=== PATIENT | female | born 1995 | race Caucasian/White ===

== ENCOUNTER → 2020-04-05 | Outpatient (CLI) | payer OTHER ==
--- NOTE | 2020-04-05 16:39 | Diagnostic Imaging Report ---
INDICATION: Routine anatomic survey. TECHNIQUE: Multiple real-time grayscale images were obtained over the gravid uterus. COMPARISON: None. FINDINGS: Number: Single live Placenta: Anterior Amniotic Fluid: ANISA is 12 cm. Single largest vertical pocket is 3.3 cm. Heart Rate: 153 bpm Biometrical measurements are as follows: Biparietal 4.64 cm, age 20 weeks 1 days. Head circumference 17.99 cm, age 20 weeks 3 days. Abdominal circumference 15.00 cm, age 20 weeks 2 days. Femur length 3.19 cm, age 20 weeks 0 days. Sonographic estimate age: 20 weeks 2 days. Sonographic estimated date of delivery: 08/21/2020. Estimated Weight: 334 gm (+/- 49 gm). LMP percentile: 44%. CLINICAL DATES: Gestational age 20 weeks and 1 day, GABRIELA 08/22/2020 FINDINGS: The anatomic survey is grossly unremarkable. The stomach, four-chamber heart, kidneys, bladder, three-vessel cord and the cord insertion are well seen. The spine is suboptimally demonstrated, but demonstrates no gross abnormalities. Intracranial structures are grossly unremarkable as well. IMPRESSION: Single live intrauterine at approximately 20 weeks and 2 days, with an GABRIELA of 08/21/2020. These are concordant with clinical dates. No gross abnormalities are seen at this time. Dictated by: Dictated on workstation # [id number]
== END ==
LOC: RAD 14:43
PROVIDERS: ATTEND Obstetrics & Gynecology
DX: Z34.00 Encounter for supervision of normal first pregnancy, unspecified trimester (principal); Z3A.00 Weeks of gestation of pregnancy not specified
CPT/HCPCS: 76805

== ENCOUNTER 2020-04-19 14:59 | Outpatient (RCR) | payer OTHER | END 2020-05-16 | disposition home or self-care (01) | PROVIDERS: ATTEND Obstetrics & Gynecology | DX: O99.891 Other specified diseases and conditions complicating pregnancy (principal); M62.81 Muscle weakness (generalized); M21.372 Foot drop, left foot; Z3A.13 13 weeks gestation of pregnancy ==

== ENCOUNTER 2020-05-19 10:04 | Outpatient (RCR) | payer OTHER ==
[2020-08-25] MEDS ORDERED: FERR325T18 PO (08:22)
[2020-08-25] MEDS ORDERED: LIDO10VI INJ (08:22)
[2020-08-25] MEDS ORDERED: DCS100C PO (08:22)
[2020-08-25] MEDS ORDERED: BENZ78AE5 TP (08:22)
[2020-08-25] MEDS ORDERED: ACHD5005 PO (08:22)
[2020-08-25] MEDS ORDERED: IBUP-844 PO (08:22)
== END 2020-08-17 | disposition home or self-care (01) ==
PROVIDERS: ATTEND Obstetrics & Gynecology
DX: M21.372 Foot drop, left foot (principal); M62.81 Muscle weakness (generalized)

== ENCOUNTER 2020-08-23 07:35 | Inpatient (IN) | payer OTHER, MEDICAID ==
[2020-08-23] VITALS (75 sets, daily range): BP systolic 91–139; BP diastolic 49–97
[~2020-08-23] VITALS: Ht 165.1 cm; Wt 107.3 kg
[2020-08-23] MEDS: D5 LR IV SOLUTION 1,000 ML IV SCH ×3 (08:56→21:40)
[2020-08-23] MEDS ORDERED: OXYTOCIN PRE-MIX DRIP 500 ML IV ONE (09:05)
[2020-08-23 09:16] LABS: BASOPHILS % (AUTO) 0 % (0-10); EOSINOPHILS # (AUTO) 0.1 10^3/uL (0.0-0.3); EOSINOPHILS % (AUTO) 1 % (0-10); HEMATOCRIT 41 % (35-52); HEMOGLOBIN 14.1 g/dL (11.5-16.0); LYMPHOCYTES % (AUTO) 19 % (12-44); MEAN CORPUSCULAR HEMOGLOBIN 28 pg (25-34); MEAN CORPUSCULAR HGB CONC 35 g/dL (32-36); MEAN CORPUSCULAR VOLUME 81 fL (80-99); MONOCYTES # (AUTO) 0.7 10^3/uL (0.0-1.0); MONOCYTES % (AUTO) 4 % (0-12); NEUTROPHILS # (AUTO) 11.7 10^3/uL (1.8-7.8); NEUTROPHILS % (AUTO) 73 % (42-75); PLATELET COUNT 222 10^3/uL (130-400)
[2020-08-23] MEDS: OXYTOCIN PRE-MIX DRIP 500 ML IV SCH (09:16)
[2020-08-23 09:37] LABS: BAND NEUTROPHILS 4 %; LYMPHOCYTES % (MANUAL) 17 %; MONOCYTES % (MANUAL) 5 %; NEUTROPHILS % (MANUAL) 74 %; RBC MORPH NORMAL
[2020-08-23] MEDS ORDERED: fentaNYL 2 mcg/ml BUPIVA 0.125 100 ML ONE (16:52)
[2020-08-23] MEDS ORDERED: LACTATED RINGERS 1,000 ML IV SCH (17:00)
[2020-08-23] MEDS ORDERED: BUPIVACAINE 0.25% 30 ML (SENSORCAINE) VIAL ONE (17:29)
[2020-08-23] MEDS ORDERED: fentaNYL INJ 100 MCG/2 ML AMP ONE (17:29)
[2020-08-23] MEDS ORDERED: LACTATED RINGERS 1,000 ML IV ONE ×2 (17:45)
[2020-08-23] MEDS ORDERED: NALOXONE 0.4 MG/ML 1 ML (NARCAN) VIAL IV PRN (17:45)
[2020-08-23] MEDS ORDERED: ONDANSETRON 4 MG/2 ML (SDV) Z0FRAN IV PRN (17:45)
[2020-08-23] MEDS ORDERED: fentaNYL INJ 100 MCG/2 ML AMP INJ ONE (17:45)
[2020-08-23] MEDS: EPIDURAL (fentaNYL 2 MCG/ML BUPIVA 0.125%)100 ML BAG EPI PRN (18:00)
[2020-08-23] MEDS ORDERED: ONDA4TAB11 PO (19:04)
[2020-08-23] MEDS ORDERED: PREN1TAB79 PO (19:04)
[2020-08-23] MEDS ORDERED: DOCU-238 PO (19:04)
[2020-08-23] MEDS: CATHETER FLUSH 10 ML SYR IV SCH ×2 (19:30→23:44)
[2020-08-24] VITALS (35 sets, daily range): BP systolic 93–139; BP diastolic 51–87
[2020-08-24] MEDS ORDERED: LIDOCAINE/EPI 2% 1:200,00 (XYLOCAINE) 10 ML VIAL INJ PRN
[2020-08-24] MEDS ORDERED: LIDOCAINE/EPI 2% 1:200,00 (XYLOCAINE) 20 ML VIAL ONE ×2 (00:06→07:21)
[2020-08-24] MEDS: EPIDURAL (fentaNYL 2 MCG/ML BUPIVA 0.125%)100 ML BAG EPI PRN (02:03)
[2020-08-24] MEDS ORDERED: MEASLES,MUMPS,RUBELLA 1 EA INJ SQ ONE (04:15)
[2020-08-24] MEDS ORDERED: TETANUS,DIPTH,PERTUSS P/F (BOOSTRIX) 0.5 ML VIAL IM ONE (04:15)
[2020-08-24] MEDS ORDERED: HYDROcodone/APAP 5 MG/325 MG (LORTAB) TAB PO PRN (04:15)
[2020-08-24] MEDS ORDERED: OXYTOCIN PRE-MIX DRIP 500 ML IV SCH (04:15)
[2020-08-24] MEDS ORDERED: DIBUCAINE 1% OINTMENT 30 GM TUBE TOP PRN (04:15)
--- NOTE | 2020-08-24 04:20 | History & Physical-OB ---
OB - Chief Complaint & HPI Date/Time Date of Admission: Date of Admission: Aug 23, 2020 at 08:09 Date seen by a Provider: Aug 23, 2020 Time Seen by a Provider: 08:15 Chief Complaint/History Hx : 1 Hx Para: 0 Expected Date of Delivery: Aug 22, 2020 Gestational Age in Weeks: 40 Gestational Age in Days: 1 Admission Nurse Assessment Rev: Yes History of Labs GBS pos Allergies and Home Medications Allergies Coded Allergies: No Known Drug Allergies (Unverified , 08/23/20) Home Medications Docusate Sodium 100 Mg Capsule, 100 MG PO DAILY PRN, (Reported) Last Action: New Order Ondansetron 4 Mg Tab.rapdis, 4 MG PO Q6H, (Reported) Last Action: New Order Vit W-Ca,Fe,FA(<1 mg) 1 Each Tablet, 1 EACH PO DAILY, (Reported) Last Action: New Order Patient Home Medication List Home Medication List Reviewed: Yes OB - History Hx of Present Care: Yes Ultrasounds: Normal mid trimester US Obstetrical Complications: None Medical Complications: None Patient Past Medical History n/a Immunizations Hepatitis A: Yes Hepatitis B: Yes Date of Influenza Vaccine: Mar 08, 2020 OB - Admission Exam Physical Exam Vitals: Vital Signs 08/23/20 08/24/20 08/24/20 17:30 01:45 02:15 Temp 37.0 Pulse 117 Resp 18 B/P (MAP) 102/51 (68) Pulse Ox 99 O2 Delivery Room Air O2 Flow Rate 15.00 HEENT: NCAT Heart: Rhythm Normal Lungs: Clear Abdomen: Gravid Extremities: Normal Reflexes: Normal Cervical Dilatation: 3cm Effacement: 75% Station: -1 Membranes: Intact Heart Rate: 150's Accelerations: Accelerations Present Decelerations: Variable Decelerations Short Term Variability: Present Finance Business Manager Variability: Average (6-25) Contractions on Admission: < 5 Minutes Apart Intensity: Firm Labs Laboratory Tests Test 08/23/20 08:45 Range/Units White Blood Count 16.0 H 4.3-11.0 10^3/uL Red Blood Count 5.01 3.80-5.11 10^6/uL Hemoglobin 14.1 11.5-16.0 g/dL Hematocrit 41 35-52 % Mean Corpuscular Volume 81 80-99 fL Mean Corpuscular Hemoglobin 28 25-34 pg Mean Corpuscular Hemoglobin Concent 35 32-36 g/dL Red Cell Distribution Width 13.2 10.0-14.5 % Platelet Count 222 130-400 10^3/uL Mean Platelet Volume 11.0 9.0-12.2 fL Immature Granulocyte % (Auto) 3 % Neutrophils (%) (Auto) 73 42-75 % Lymphocytes (%) (Auto) 19 12-44 % Monocytes (%) (Auto) 4 0-12 % Eosinophils (%) (Auto) 1 0-10 % Basophils (%) (Auto) 0 0-10 % Neutrophils # (Auto) 11.7 H 1.8-7.8 10^3/uL Lymphocytes # (Auto) 3.0 1.0-4.0 10^3/uL Monocytes # (Auto) 0.7 0.0-1.0 10^3/uL Eosinophils # (Auto) 0.1 0.0-0.3 10^3/uL Basophils # (Auto) 0.0 0.0-0.1 10^3/uL Immature Granulocyte # (Auto) 0.4 H 0.0-0.1 10^3/uL Neutrophils % (Manual) 74 % Lymphocytes % (Manual) 17 % Monocytes % (Manual) 5 % Band Neutrophils 4 % Blood Morphology Comment NORMAL OB - Assessment/Plan/Diagnosis Assessment Assessment: active labor, rupture of membranes Admission Dx 25 yo @ 40.1 Active labor SROM GBS neg Admission Status: Inpatient Order (span 2 midnights) Reason for Inpatient Admission: Active labor at term [facility] Plan Plan: Expectant Management JULIANNE MELCHOR DO Aug 24, 2020 04:20
[2020-08-24] MEDS: OXYTOCIN PRE-MIX DRIP 500 ML IV SCH (04:21)
--- NOTE | 2020-08-24 04:26 | OB Labor & Delivery Record ---
L&D History Date of Service Date of Service: Aug 24, 2020 History Expected Date of Delivery: Aug 22, 2020 Gestational Age in Weeks: 40 Hx : 1 Hx Para: 0 Complications Events: Routine care Operative Indications (Cesarea: N/A-Vaginal Delivery Intrapartal Events: None, Ineffective Pushing L&D Stage1 Stage One Onset of Labor - Date: Aug 24, 2020 Monitors and Tracing Monitor Mode: External Heart Rate: 150 Monitor Accelerations: Uniform Monitor Decelerations: Variable Station: -1 Placement Specialist Variability: Average (6-10) Presentation: Vertex Vital Signs VS - Last 72 Hours, by Label 08/23/20 08/23/20 08/23/20 08/23/20 07:50 08:20 08:30 08:50 Temp 36.7 36.7 Pulse 111 108 111 117 Resp 20 18 20 18 B/P (MAP) 121/76 (91) 117/71 (86) 122/79 (93) Pulse Ox 97 20 97 O2 Delivery Room Air Room Air Room Air Room Air 08/23/20 08/23/20 08/23/20 08/23/20 09:26 09:45 10:00 10:15 Temp 36.7 Pulse 96 97 92 100 Resp 18 18 18 18 B/P (MAP) 113/65 (81) 114/59 (77) 106/58 (74) 116/56 (76) O2 Delivery Room Air Room Air Room Air Room Air 08/23/20 08/23/20 08/23/20 08/23/20 10:30 10:45 11:00 11:15 Temp 36.4 Pulse 96 89 67 90 Resp 18 18 18 18 B/P (MAP) 102/57 (72) 112/65 (81) 110/61 (77) 115/70 (85) O2 Delivery Room Air Room Air Room Air Room Air 08/23/20 08/23/20 08/23/20 08/23/20 11:30 11:45 12:00 12:15 Temp 36.4 Pulse 73 73 70 72 Resp 18 18 18 18 B/P (MAP) 110/59 (76) 110/58 (75) 113/59 (77) 134/80 (98) O2 Delivery Room Air Room Air Room Air Room Air 4/14/08/23/20 08/23/20 08/23/20 12:30 12:45 13:00 13:15 Pulse 67 68 65 65 Resp 18 18 18 18 B/P (MAP) 113/61 (78) 119/59 (79) 115/57 (76) 125/58 (80) O2 Delivery Room Air Room Air Room Air Room Air 08/23/20 08/23/20 08/23/20 08/23/20 13:30 13:45 14:00 14:15 Temp 36.8 Pulse 115 88 92 87 Resp 18 18 18 18 B/P (MAP) 124/58 (80) 104/59 (74) 113/60 (77) 117/65 (82) O2 Delivery Room Air Room Air Room Air Room Air 08/23/20 08/23/20 08/23/20 08/23/20 14:30 14:45 15:00 15:15 Pulse 76 84 84 76 Resp 18 18 18 18 B/P (MAP) 91/50 (64) 93/55 (68) 93/55 (68) 96/55 (69) O2 Delivery Room Air Room Air Room Air Room Air 08/23/20 08/23/20 08/23/20 08/23/20 15:30 15:45 16:00 16:15 Temp 36.7 Pulse 80 74 76 71 Resp 18 18 18 18 B/P (MAP) 101/49 (66) 100/62 (75) 111/59 (76) 114/64 (81) O2 Delivery Room Air Room Air Room Air Room Air 08/23/20 08/23/20 08/23/20 08/23/20 16:30 16:45 17:00 17:15 Temp 36.7 Pulse 71 65 68 64 Resp 18 18 18 18 B/P (MAP) 114/64 (81) 122/58 (79) 122/58 (79) 120/66 (84) Pulse Ox 100 100 100 O2 Delivery Room Air Non Rebreather Non Rebreather Non Rebreather O2 Flow Rate 15.00 15.00 15.00 08/23/20 08/23/20 08/23/20 08/23/20 17:30 17:45 17:50 17:53 Pulse 66 107 81 80 Resp 18 18 18 18 B/P (MAP) 114/70 (85) 139/97 (111) 127/78 (94) 124/76 (92) Pulse Ox 100 98 100 100 O2 Delivery Non Rebreather Room Air Room Air Room Air O2 Flow Rate 15.00 08/23/20 08/23/20 08/23/20 08/23/20 17:56 18:00 18:03 18:05 Pulse 100 106 74 80 Resp 18 18 18 18 B/P (MAP) 110/65 (80) 93/52 (66) 104/56 (72) 109/67 (81) Pulse Ox 99 97 99 98 O2 Delivery Room Air Room Air Room Air Room Air 08/23/20 08/23/20 08/23/20 08/23/20 18:07 18:10 18:13 18:15 Pulse 92 96 88 88 Resp 18 18 18 18 B/P (MAP) 103/59 (74) 101/55 (70) 97/55 (69) 97/55 (69) Pulse Ox 98 98 100 100 O2 Delivery Room Air Room Air Room Air Room Air 08/23/20 08/23/20 08/23/20 08/23/20 18:17 18:23 18:26 18:30 Temp 36.2 36.2 Pulse 96 78 77 79 Resp 18 18 18 18 B/P (MAP) 103/57 (72) 94/53 (67) 99/57 (71) 100/58 (72) Pulse Ox 100 97 100 96 O2 Delivery Room Air Room Air Room Air Room Air 08/23/20 08/23/20 08/23/20 08/23/20 18:37 18:40 18:45 19:00 Temp 36.8 Pulse 103 80 93 96 Resp 18 18 18 18 B/P (MAP) 116/58 (77) 139/62 (87) 95/54 (68) 105/65 (78) Pulse Ox 100 99 99 98 O2 Delivery Room Air Room Air Room Air Room Air 08/23/20 08/23/20 08/23/20 08/23/20 19:15 19:30 19:45 20:00 Temp 36.9 Pulse 73 90 95 90 Resp 18 18 18 18 B/P (MAP) 115/56 (75) 112/66 (81) 109/66 (80) 109/62 (78) Pulse Ox 99 99 100 100 O2 Delivery Room Air Room Air Room Air Room Air 4/08/23/20 08/23/20 08/23/20 20:15 20:30 20:45 21:00 Temp 36.2 Pulse 91 93 83 97 Resp 18 18 18 18 B/P (MAP) 109/57 (74) 107/60 (76) 125/68 (87) 131/62 (85) Pulse Ox 99 99 100 100 O2 Delivery Room Air Room Air Room Air Room Air 08/23/20 08/23/20 08/23/20 08/23/20 21:15 21:30 21:45 22:00 Temp 36.6 Pulse 69 86 76 81 Resp 18 18 18 18 B/P (MAP) 128/59 (82) 111/53 (72) 119/59 (79) 131/62 (85) Pulse Ox 99 98 99 99 O2 Delivery Room Air Room Air Room Air Room Air 08/23/20 08/23/20 08/23/20 08/23/20 22:15 22:30 22:45 23:00 Temp 36.4 Pulse 84 76 87 87 Resp 18 18 18 18 B/P (MAP) 132/59 (83) 135/63 (87) 128/60 (82) 133/64 (87) Pulse Ox 100 99 99 100 O2 Delivery Room Air Room Air Room Air Room Air 08/23/20 08/23/20 08/23/20 08/24/20 23:15 23:30 23:45 00:00 Temp 36.5 Pulse 92 93 89 88 Resp 18 18 18 18 B/P (MAP) 127/58 (81) 121/58 (79) 131/61 (84) 135/75 (95) Pulse Ox 99 99 98 100 O2 Delivery Room Air Room Air Room Air Room Air 08/24/20 08/24/20 08/24/20 08/24/20 00:05 00:10 00:15 00:20 Pulse 87 93 85 87 Resp 18 18 18 18 B/P (MAP) 127/66 (86) 118/57 (77) 126/58 (80) 139/63 (88) Pulse Ox 99 99 99 99 O2 Delivery Room Air Room Air Room Air Room Air 08/24/20 08/24/20 08/24/20 08/24/20 00:25 00:30 00:45 01:00 Pulse 97 79 90 91 Resp 18 18 18 18 B/P (MAP) 126/63 (84) 112/59 (76) 130/64 (86) 129/66 (87) Pulse Ox 99 99 99 100 O2 Delivery Room Air Room Air Room Air Room Air 08/24/20 08/24/20 08/24/20 08/24/20 01:15 01:30 01:45 02:00 Temp 36.6 37.0 Pulse 97 105 114 117 Resp 18 18 18 56 B/P (MAP) 114/55 (74) 128/58 (81) 115/56 (75) 107/56 (73) Pulse Ox 99 99 99 99 O2 Delivery Room Air Room Air Room Air Room Air 08/24/20 02:15 Pulse 117 Resp 18 B/P (MAP) 102/51 (68) Pulse Ox 99 O2 Delivery Room Air Rupture of Membranes Spontaneous Ruture of Membrane: Yes Amniotic Membrane Rupture Time: 0630 Amniotic Membrane Fluid Desc.: Clear Vaginal Bleeding Description: Normal Show Induction/Anesthesia Epidural Cath Placement - Time: 1748 Progress/Notes Patient admitted [facility]OM in active labor. Pitocin augmentation started, and contraction pattern achieved that was adequate. She received an epidural and progressed to complete and 0 station with max dose of pitocin 18 mu reached. L&D Stage2 Stage Two Stage II Date: Aug 24, 2020 Monitors and Tracing Monitor Mode: External Heart Rate: 150 Placement Specialist Variability: Average (6-10) Short Term Variability: Present Position: Left Occiput Anterior Presentation: Vertex Cord Descript/Complications Cord Vessel Description: 3 Vessels Complications Patient progressed vertex to + 2 station, and pushing at that point became ineffective. SADIE position confirmed, and patient educated about Kiwi vacuum extractor. Suction cup placed on the flexion point, and with next maternal push 40mmHg applied using the handpiece pump. With gentle traction and extension of the head, it was delivered over RML ROMMEL, as rotation occurred during extension. Remainder of the delivery was unremarkable Delivery Type Delivery Method: Low Vacuum Extraction Anterior Shoulder: Left Episiotomy/Perineal Laceration Laceraction(s)/Extensions: Yes Episiotomy Description: Right Mediolateral Degree (describe repair) RML repaired using 3-0 and 2-0 vicryl suture Condition of Delivery 1 minute Comment: 8 5 minute Comment: 9 Notes Live female infant weight 7lbs 7oz Condition of Condition of : Living Exam: No Observed Abnormalities Resuscitation Resuscitation: N/A - Spontaneous Resp L&D Stage3 Stage Three Stage III Date: Aug 24, 2020 Pictocin Pitocin Administration mu/min: 18 Pitocin ml/hr: 18 Pitocin Administration Comment: 30 mu wide open at delivery of placenta Placenta Delivery Placenta Delivery: Spontaneous Delivery Summary Summary Estimated blood loss (mL): 400 Attending at delivery: Martinez Melchor DO Condition of Delivery Examined: Cervix Examined, Uterus Explored Post Hemorrhage: No Condition of Mother stable Condition of Infant (s) stable MARTINEZ MELCHOR DO Aug 24, 2020 04:26
[2020-08-24] MEDS: IBUPROFEN 600 MG (MOTRIN) TAB PO SCH ×4 (05:22→23:49)
[2020-08-24] MEDS: WITCH HAZEL(TUCKS) 40 EA JAR TOP PRN (05:55)
[2020-08-24] MEDS: BENZOCAINE/MENTHOL (DERMOPLAST) 56 ML CAN TP PRN (05:55)
[2020-08-24] MEDS ORDERED: CATHETER FLUSH 10 ML SYR IV SCH (06:00)
[2020-08-24] MEDS: CATHETER FLUSH 10 ML SYR IV SCH ×2 (07:55→19:38)
[2020-08-24] MEDS: FERROUS SULF 325 MG (IRON) TAB PO SCH (11:58)
[2020-08-24] MEDS: DOCUSATE SODIUM 100 MG (COLACE) CAP PO SCH ×2 (11:58→21:05)
[2020-08-24] MEDS: PRENATAL VITAMIN 1 EA TAB PO SCH (11:59)
--- NOTE | 2020-08-24 13:59 | Anesthesia-Regional Post-Op ---
Regional Patient Condition Mental Status: Alert, Oriented x3 Circulation: Same as Pre-Op Headache: Absent Sensation: Full Recovery Motor Block: Absent Post Op Complications Complications None Follow Up Care/Instructions Patient Instructions None needed. Anesthesia/Patient Condition Patient is doing well, no complaints, stable vital signs, no apparent adverse anesthesia problems. KAYLA CORDOVA DO Aug 24, 2020 13:59
[2020-08-24] MEDS: D5 LR IV SOLUTION 1,000 ML IV SCH ×2 (19:38→19:39)
[2020-08-25] MEDS: CATHETER FLUSH 10 ML SYR IV SCH (01:10)
[2020-08-25 04:35] VITALS: BP 115/63
[2020-08-25 06:27] LABS: BASOPHILS # (AUTO) 0.1 10^3/uL (0.0-0.1); BASOPHILS % (AUTO) 0 % (0-10); EOSINOPHILS # (AUTO) 0.1 10^3/uL (0.0-0.3); EOSINOPHILS % (AUTO) 1 % (0-10); HEMATOCRIT 28 % (35-52); HEMOGLOBIN 9.4 g/dL (11.5-16.0); LYMPHOCYTES % (AUTO) 22 % (12-44); MEAN CORPUSCULAR HEMOGLOBIN 28 pg (25-34); MEAN CORPUSCULAR HGB CONC 33 g/dL (32-36); MEAN CORPUSCULAR VOLUME 85 fL (80-99); MEAN PLATELET VOLUME 10.9 fL (9.0-12.2); MONOCYTES # (AUTO) 0.8 10^3/uL (0.0-1.0); MONOCYTES % (AUTO) 6 % (0-12); NEUTROPHILS # (AUTO) 9.6 10^3/uL (1.8-7.8); NEUTROPHILS % (AUTO) 69 % (42-75); PLATELET COUNT 193 10^3/uL (130-400); WHITE BLOOD COUNT 13.9 10^3/uL (4.3-11.0)
--- NOTE | 2020-08-25 08:19 | Postpartum Progress Note ---
Note Note Day # 1 Subjective: Patient is without complaints. Ambulating, voiding. Tolerating a regular diet without nausea or vomiting. Normal lochia. Pain is well controlled with oral pain medications. Objective: Physical Exam: General - Alert and oriented, no apparent distress Abdomen - Soft, appropriately tender to palpation, non-distended, fundus firm at umbilicus Extremities - no edema, negative Esa's bilaterally Assessment: PPD 1 VAVD Acute blood loss anemia Plan: Routine care. Encourage breast feeding. Encourage ambulation. Ferrous sulfate supplementation. Plan for discharge today Vitals - Labs Vital Signs - I&O Vital Signs Date Time Temp Pulse Resp B/P (MAP) Pulse Ox O2 Delivery O2 Flow Rate FiO2 08/25/20 04:35 36.2 80 18 115/63 (80) 99 Room Air 08/24/20 23:49 36.6 83 18 110/59 (76) 98 Room Air 08/24/20 21:05 36.3 80 18 112/68 (83) 98 Room Air 08/24/20 17:19 36.1 82 18 105/55 (72) 98 Room Air 08/24/20 12:01 36.0 74 18 121/65 (83) 98 Room Air 08/24/20 08:39 35.5 90 18 114/55 (74) 97 Room Air 08/24/20 08:20 88 18 106/58 (74) Room Air Labs Laboratory Tests 08/25/20 05:28: White Blood Count 13.9H, Red Blood Count 3.33L, Hemoglobin 9.4#L, Hematocrit 28L , Mean Corpuscular Volume 85, Mean Corpuscular Hemoglobin 28, Mean Corpuscular Hemoglobin Concent 33, Red Cell Distribution Width 13.6, Platelet Count 193, Mean Platelet Volume 10.9, Immature Granulocyte % (Auto) 2, Neutrophils (%) (Auto) 69, Lymphocytes (%) (Auto) 22, Monocytes (%) (Auto) 6, Eosinophils (%) (Auto) 1, Basophils (%) (Auto) 0, Neutrophils # (Auto) 9.6H, Lymphocytes # (Auto) 3.0, Monocytes # (Auto) 0.8, Eosinophils # (Auto) 0.1, Basophils # (Auto) 0.1, Immature Granulocyte # (Auto) 0.3H JULIANNE MELCHOR DO Aug 25, 2020 08:19
--- NOTE | 2020-08-25 08:20 | Discharge Inst-Women's Service ---
Discharge Inst-Women's Serv Depart Medication/Instructions New, Converted or Re-Newed RX: RX on Chart Final Diagnosis PPD 1 VAVD Acute blood loss anemia Problems Reviewed?: Yes Consults/Follow Up Additional Follow Up: Yes Orders/Referrals Dr. Melchor in 6 weeks Activity Activity: Activity as Tolerated Driving Instructions: No Driving for 1 Week NO SMOKING: NO SMOKING Nothing Inside Vagina: No Douching, No [place], No Tampons Diet Discharge Diet: No Restrictions Symptoms to Report to : Bleeding Excessive, Pain Increased, Fever Over 101 Degrees F, Vaginal Bleeding Increase, Questions/Concerns For Any Problems or Questions: Contact Your Physician JULIANNE MELCHOR DO Aug 25, 2020 08:20
[2020-08-25] MEDS ORDERED: IBUP-844 PO (08:22)
[2020-08-25] MEDS ORDERED: FERR325T18 PO (08:22)
[2020-08-25] MEDS ORDERED: BENZ78AE5 TP (08:22)
[2020-08-25] MEDS ORDERED: DCS100C PO (08:22)
[2020-08-25] MEDS ORDERED: LIDO10VI INJ (08:22)
[2020-08-25] MEDS ORDERED: ACHD5005 PO (08:22)
[2020-08-25 08:58] VITALS: BP 104/64
[2020-08-25] MEDS: PRENATAL VITAMIN 1 EA TAB PO SCH (09:04)
[2020-08-25] MEDS: DOCUSATE SODIUM 100 MG (COLACE) CAP PO SCH ×2 (09:05→20:29)
[2020-08-25] MEDS: IBUPROFEN 600 MG (MOTRIN) TAB PO SCH ×3 (09:05→20:29)
[2020-08-25] MEDS: FERROUS SULF 325 MG (IRON) TAB PO SCH (09:05)
[2020-08-25 12:12] VITALS: BP 128/61
[2020-08-25 16:44] VITALS: BP 136/72
[2020-08-25] MEDS: BENZOCAINE/MENTHOL (DERMOPLAST) 56 ML CAN TP PRN (16:49)
[2020-08-25] MEDS: WITCH HAZEL(TUCKS) 40 EA JAR TOP PRN (16:49)
[2020-08-25 20:35] VITALS: BP 120/59
[2020-08-26] MEDS: IBUPROFEN 600 MG (MOTRIN) TAB PO SCH ×3 (02:43→14:56)
[2020-08-26 02:45] VITALS: BP 110/57
--- NOTE | 2020-08-26 08:24 | Postpartum Progress Note ---
MAYE TIAN MED STUDENT 08/26/20 0824: Note Note Day # 2 Subjective: Patient is without complaints. Ambulating, voiding. Tolerating a regular diet without nausea or vomiting. Normal lochia; states that drainage is decreasing. Pain is well controlled with oral pain medications. Complains of mild pain/edema to her feet Objective: Physical Exam: General - Alert and oriented, no apparent distress Abdomen - Soft, appropriately tender to palpation, non-distended, fundus firm at umbilicus Extremities - mild edema bilaterally, negative Esa's bilaterally Assessment: PPD2, s/p VAVD Recovering well Acute blood loss anemia - asymptomatic, Hgb 14.1 to 9.4 Plan: Routine care. Encourage breast feeding. Encourage ambulation. Ferrous sulfate supplementation. Plan for discharge today f/u in 6wks Vitals - Labs Vital Signs - I&O Vital Signs Date Time Temp Pulse Resp B/P (MAP) Pulse Ox O2 Delivery O2 Flow Rate FiO2 08/26/20 02:45 36.1 78 16 110/57 (74) 99 Room Air 08/25/20 20:35 36.2 89 16 120/59 (79) 100 Room Air 08/25/20 16:44 36.4 78 18 136/72 (93) 98 Room Air 08/25/20 12:12 36.2 83 18 128/61 (83) 96 Room Air 08/25/20 08:58 36.2 78 18 104/64 (77) 99 Room Air JULIANNE MELCHOR DO 08/26/20 1434: Note Note Verification and Attestation of Medical Student E/M Service A medical student performed and documented this service in my presence. I reviewed and verified all information documented by the medical student and made modifications to such information, when appropriate. I personally performed the physical exam and medical decision making. Julianne Melchor, Aug 26, 2020,14:34 MAYE TIAN MED STUDENT Aug 26, 2020 08:24 JULIANNE MELCHOR DO Aug 26, 2020 14:34
[2020-08-26 09:15] VITALS: BP 105/58
[2020-08-26] MEDS: FERROUS SULF 325 MG (IRON) TAB PO SCH (09:26)
[2020-08-26] MEDS: DOCUSATE SODIUM 100 MG (COLACE) CAP PO SCH (09:26)
[2020-08-26] MEDS: PRENATAL VITAMIN 1 EA TAB PO SCH (09:26)
[2020-08-26 13:25] VITALS: BP 120/59
[2020-08-26 17:00] VITALS: BP 120/59
== END 2020-08-26 17:00 | disposition home or self-care (01) | DRG 806 ==
LOC: LDRP 07:35 → WSo 07:35 → LDRP 08:09 → WSo 08:09 → LDRP 08-24 09:05
PROVIDERS: ADMIT Obstetrics & Gynecology; ATTEND Obstetrics & Gynecology
PROC: 10D07Z6 Extraction of Products of Conception, Vacuum, Via Natural or Artificial Opening (ICD-10-PCS; principal; 2020-08-24)
PROC: 0W8NXZZ Division of Female Perineum, External Approach (ICD-10-PCS; 2020-08-24)
DX: O48.0 Post-term pregnancy (principal); D62 Acute posthemorrhagic anemia; Z37.0 Single live birth; O90.81 Anemia of the puerperium; Z3A.40 40 weeks gestation of pregnancy
CPT/HCPCS: 36415; 85007; 85025; 85027; 86850; 86900; 86901; 99212